=== PATIENT | female | born 1990 | race Caucasian/White ===

== ENCOUNTER 2022-02-24 20:35 | Emergency (ER) | payer MEDICARE, MEDICAID ==
[~2022-02-24] VITALS: Ht 170.2 cm; Wt 85.4 kg
[2022-02-24 23:10] LABS: BACTERIA, URINE SMALL AMOUNT; HYALINE CAST, URINE NONE SEEN /lpf (0-1); MUCUS, URINE SMALL AMOUNT (NEGATIVE); RBC, URINE TNTC /hpf (0-3); SQUAMOUS EPITHELIAL CELL URINE SMALL AMOUNT /hpf (SMALL AMT); TRANSITIONAL EPI CELLS, URINE SMALL AMOUNT /hpf; YEAST, URINE SMALL AMOUNT
[2022-02-24 23:11] LABS: AMORPHOUS SEDIMENT, URINE SMALL AMOUNT (NEGATIVE)
[2022-02-25] MEDS ORDERED: KETOROLAC TROMETHAMINE 10 MG TAB PO ONE (01:30)
[2022-02-25] MEDS ORDERED: ONDANSETRON 4MG ORAL DISINTEGRATING TAB PO ONE (01:30)
[2022-02-25] MEDS ORDERED: CIPROFLOXACIN 500MG TABLET PO ONE (01:30)
[2022-02-25] MEDS ORDERED: CIPR-249 PO (03:42)
[2022-02-25 03:55] VITALS: BP 125/57
== END 2022-02-25 04:02 | disposition home or self-care (01) ==
LOC: M ED 20:35
DX: N39.0 Urinary tract infection, site not specified (principal); I48.91 Unspecified atrial fibrillation; R16.0 Hepatomegaly, not elsewhere classified